=== PATIENT | female | born 1980 | race Caucasian/White ===

== ENCOUNTER → 2016-10-03 | Outpatient (CLI) | payer MEDICAID ==
[~2016-10-03] MED LIST: ACET325; FIORTAB4 PO; LORT5TAB PO
== END ==
LOC: HPND 11:08
PROVIDERS: ATTEND Obstetrics & Gynecology
DX: O09.522 Supervision of elderly multigravida, second trimester (principal); O99.212 Obesity complicating pregnancy, second trimester; O10.912 Unspecified pre-existing hypertension complicating pregnancy, second trimester; Z3A.17 17 weeks gestation of pregnancy
CPT/HCPCS: 36415; 36416; 76811

== ENCOUNTER → 2016-11-14 | Outpatient (CLI) | payer MEDICAID | LOC: HPND 11:13 | PROVIDERS: ATTEND Obstetrics & Gynecology | DX: O09.522 Supervision of elderly multigravida, second trimester (principal); O10.012 Pre-existing essential hypertension complicating pregnancy, second trimester; O13.2 Gestational [pregnancy-induced] hypertension without significant proteinuria, second trimester; O99.212 Obesity complicating pregnancy, second trimester; E66.01 Morbid (severe) obesity due to excess calories; Z68.41 Body mass index [BMI] 40.0-44.9, adult | CPT/HCPCS: 76816 ==

== ENCOUNTER → 2016-12-11 | Outpatient (CLI) | payer MEDICAID | LOC: HPND 09:39 | PROVIDERS: ATTEND Obstetrics & Gynecology | DX: O09.522 Supervision of elderly multigravida, second trimester (principal); O99.512 Diseases of the respiratory system complicating pregnancy, second trimester; O40.2XX0 Polyhydramnios, second trimester, not applicable or unspecified; O10.912 Unspecified pre-existing hypertension complicating pregnancy, second trimester | CPT/HCPCS: 76816 ==